=== PATIENT | female | born 1980 | race Caucasian/White ===

== ENCOUNTER 2025-06-06 08:31 | Outpatient (CLI) | payer BC, SELFPAY ==
--- NOTE | ~2025-06-06 | XR_ITS ---
XR knee LT min 4V 06/06/2025 09:01 Indication: Left knee pain Procedure: 4 views left knee Comparison: No prior studies for comparison. Findings: There is mild tricompartment osteoarthritis. No fracture, subluxation or dislocation. No significant joint effusion. No foreign bodies. Impression: 1: Mild tricompartment osteoarthritis. Reviewed, dictated and finalized at location I. ING SOLUTION MAKER Impression: 1: Mild tricompartment osteoarthritis.
--- NOTE | ~2025-06-06 | XR_ITS ---
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 Findings: No acute fracture or malalignment. Moderate tricompartmental degenerative changes. Soft tissues unremarkable. Impression: No acute fracture or malalignment. Reviewed, dictated and finalized at location P. TRIC METER REPAIRER APPRENTICE Impression: No acute fracture or malalignment.
--- OUTSIDE RECORDS SUMMARY | 2025-06-06 08:41 | XMS_ITS | Clinical Summary ---
Author Organization [facility] Address [facility] [place] [address] Care Team Providers Care [employer] Wafer [employer]aker Name Role Phone Min Gonsalez MD Primary Care Provider [phone] Allergies No known active allergies Medications HYDROcodone-acet aminophen 5-325 MG tabletIndication s:Acute Pain < 7 Day Supply Take 1 tablet by mouth every 6 (six) hours as needed for Pain. 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 Gender Identity Not on file Sexual Orientation Not on file Last Filed Vital Signs Vital Sign Reading Time Taken Comments Blood Pressure 172/94 07/16/2020 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 Pulse 98 07/16/2020 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 Temperature 36 C (96.8 F) 07/16/2020 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 Respiratory Rate 16 07/16/2020 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 Oxygen Saturation 100% 07/16/2020 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 Inhaled Oxygen Concentration - - Weight 77.1 kg (170 lb) 07/16/2020 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 Height 162.6 cm (5' 4) 07/16/2020 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 Body Mass Index 29.18 07/16/2020 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 Plan of Treatment Health Maintenance Due Date Last Done Comments Cervical Cancer Screening Pa p Smear (Age 30 to 64) Every 3 Years 1980 Annual Physical 12/07/1983 Hepatitis C 1998 DTaP, Tdap and Td Vaccines ( 1 - Tdap) 12/07/1999 Hepatitis B Vaccines (1 of 3 - 19+ 3-dose series) 12/07/1999 HPV Vaccines (1 - 3-dose SCD M series) 12/07/2007 Cervical Cancer Screening Pa p with HPV Testing (Age 30 to 64) Every 5 Years 2010 Cervical Cancer Screening with HPV 2010 Mammogram Screening 2020 COVID-19 Vaccine ( - 2024-2 6 season) 2025 Influenza Adult (#1) 2025 Hepatitis A Vaccines Aged Out No long er eligible based on patient's age to complete this topic Meningococcal B Vaccine Aged Out No l onger eligible based on patient's age to complete this topic Meningococcal Vaccine Aged Out No lul danya eligible based on patient's age to complete this topic Pneumococcal Vaccine: Pediat rics (0 to 5 Years) and At-Risk Patients (6 to 49 Years) Aged Out No longer eligible b ased on patient's age to complete this topic RSV Immunizations Under 20 Months Aged Out No longer eligible based on patient's age to complete this topic Insurance [facility] [place] Care Teams [employer] Relationship Specialty Start Date End Date Min Gonsalez MD [address] [place] [address] PCP - General FAMILY PRACTICE 07/16/20
== END 2025-06-06 08:32 | disposition home or self-care (01) ==
PROVIDERS: PCP Family Medicine; Visit Provider Orthopaedic Surgery
DX: M25.562 Pain in left knee (principal); M25.561 Pain in right knee; M17.12 Unilateral primary osteoarthritis, left knee
CPT/HCPCS: 73564